=== PATIENT | male | born 1960 | race Caucasian/White ===

== ENCOUNTER 2020-02-28 12:17 | Inpatient (IN) | payer OTHER ==
[~2020-02-28] VITALS: Ht 170.2 cm; Wt 107.0 kg
[2020-02-28 13:57] LABS: BASOPHILS ABSOLUTE AUTO 0.04 K/mm3 (0.00-0.23); BASOPHILS PERCENT AUTO 0 % (0-2); EOSINOPHILS ABSOLUTE AUTO 0.01 K/mm3 (0.00-0.68); EOSINOPHILS PERCENT AUTO 0 % (0-6); Hemoglobin 18.2 g/dL (13.5-17.5); IMMATURE GRAN ABSOLUTE AUTO 0.04 K/mm3 (0.00-0.10); IMMATURE GRAN PERCENT AUTO 0 % (0-1); LYMPHOCYTES ABSOLUTE AUTO 0.95 K/mm3 (0.84-5.20); LYMPHOCYTES PERCENT AUTO 9 % (21-46); MONOCYTES ABSOLUTE AUTO 0.56 K/mm3 (0.16-1.47); MONOCYTES PERCENT AUTO 6 % (4-13); Mean Corpuscular HGB Conc 32.4 g/dL (31.5-36.5); Mean Corpuscular Volume 102 fL (80-100); Mean Platelet Volume 10.8 fL (9.1-12.4); NEUTROPHILS ABSOLUTE AUTO 8.48 K/mm3 (1.96-9.15); NEUTROPHILS PERCENT AUTO 84 % (41-73); Platelet Count 142 K/mm3 (150-400); RDW Coefficient Variation 15.6 % (11.7-14.2); RDW Standard Deviation 59.5 fL (35.1-46.3); Red Blood Cell Count 5.51 M/mm3 (4.30-5.90); White Blood Cell Count 10.08 K/mm3 (4.00-11.30)
[2020-02-28 13:59] LABS: Hematocrit 56.2 % (37.0-53.0)
[2020-02-28 14:22] LABS: Alanine Aminotransfer (ALT/SGP 46 U/L (12-78); Alk Phos 68 U/L (50-136); Anion Gap 4 mmol/L (6-16); Aspartate Aminotrans (AST/SGOT 28 U/L (12-37); Bilirubin, Total 0.8 mg/dL (0.1-1.0); Blood Urea Nitrogen 10 mg/dL (8-24); Bun/Creatinine Ratio 9.6 (12.0-20.0); CO2, Blood 30 mmol/L (21-32); Calcium, Blood 9.8 mg/dL (8.5-10.1); Chloride, Blood 107 mmol/L (98-108); Creatinine, Blood 1.04 mg/dL (0.60-1.20); Globulin, Blood 4.2 g/dL (2.2-4.0); Glomerular Filtration Rate >60 (60-); Glucose, Blood 124 mg/dL (70-99); Sodium, Blood 141 mmol/L (136-145); Total Protein, Blood 8.2 g/dL (6.4-8.2); Troponin I <0.015 ng/mL (0.000-0.040)
[2020-02-28] MEDS ORDERED: FLUTICASONE-SA1 EAC4 INH (15:44)
[2020-02-28] MEDS ORDERED: OXYC5 PO (15:44)
[2020-02-28] MEDS ORDERED: PANTOPRAZOLE SO40 M2 PO (15:44)
[2020-02-28] MEDS ORDERED: VITAMIN D3125 MC1 PO (15:45)
[2020-02-28] MEDS ORDERED: Testostero100 MG/1 M IM (15:46)
[2020-02-28] MEDS ORDERED: ONDA4 (20:39)
[2020-02-28] MEDS ORDERED: TRAZ100 PO (20:42)
--- NOTE | 2020-02-29 00:36 | NUR ---
02/28/202029 PT INFORMED OF ORDER FOR AN NG TUBE TO BE INSERTED. STATES HE COULD NOT TOLERATE IT AND DECLINED TUBE FOR NOW. NPO. DENIES ANY ABDOMINAL PAIN AND ONLY "3" LEVEL CHRONIC BACK/JOINT DISCOMFORT. COMFORTABLE AT THIS LEVEL.
--- NOTE | 2020-02-29 07:50 | NUR ---
02/29/20 0600 PT STATES HE IS PASSING "GAS" THIS AM. NO BM YET. C/O SLIGHT NAUSEA AND WAS MEDICATED PER JAN. VITALS STABLE. DENIES ANY DISCOMFORT THIS SHIFT. UNEVENTFUL NIGHT. VOIDED THIS AM.
--- NOTE | 2020-02-29 10:12 | NUR ---
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 PT CURRENTLY AWAITING DR OLSEN CONSULT BUT PT REPORTS HE DOES NOT WANT TO WAIT AND WOULD LIKE TO LEAVE AMA IF NOT. PT DID TOLERATE A CLEAR LIQUID DIET. CALLED AND SPOKE WITH DR MONTIEL WHO REPORTS SHE WILL GO AHEAD AND DISCHARGE HIM PER HIS REQUEST.
--- NOTE | 2020-02-29 10:29 | NUR ---
DR OLSEN IN TO SEE PT, PER DR OLSEN OK FOR PT TO GO HOME AND NO NEED FOR PT TO FOLLOW UP WITH HIM.
--- NOTE | 2020-02-29 10:42 | NUR ---
DISCHARGE INSTRUCTIONS REVIEWED WITH PT, IV DC'D INTACT. F/U TELEHEALTH APPT MADE WITH PCP. PT DISCHARGED AND ESCORTED OUT AT 1037.
== END 2020-02-29 10:37 | disposition home or self-care (01) | DRG 390 ==
LOC: ER 12:17 → MEDS 15:30 → ENPENDDIS 02-29 10:27 → MEDS 02-29 10:37
PROVIDERS: Emergency Medicine; ADMIT Family Medicine
DX: K56.600 Partial intestinal obstruction, unspecified as to cause (principal); K21.9 Gastro-esophageal reflux disease without esophagitis; D69.6 Thrombocytopenia, unspecified; J44.9 Chronic obstructive pulmonary disease, unspecified; Z87.891 Personal history of nicotine dependence
CPT/HCPCS: 74177; 80053; 83690; 84484; 85025; 94640; 94760; 96361; 96374-59; 99285-25; C9113; J2405; J7030; Q9967